=== PATIENT | female | born 1955 | race Caucasian/White ===

== ENCOUNTER 2019-02-13 10:08 | Day surgery (SDC) | payer MEDICARE ==
[2019-02-13] MEDS ORDERED: Lactated Ringers 1,000 ML IV ONE ×3 (10:26→15:10)
[2019-02-13] MEDS ORDERED: Quelicin Fliptop 200 MG/10 ML ONE (10:33)
[2019-02-13] MEDS ORDERED: Zemuron 100 MG/10 ML ONE (10:33)
[2019-02-13] MEDS ORDERED: DIPRIVAN 200 MG/20 ML IV ONE (10:33)
[2019-02-13] MEDS ORDERED: SUBLIMAZE 100 MCG/2 ML ONE ×2 (10:34→14:05)
[2019-02-13] MEDS: Lactated Ringers 1,000 ML IV SCH ×2 (10:52→15:10)
--- NOTE | 2019-02-13 11:09 | HP ---
DATE OF SURGERY: 02/13/2019 HISTORY OF PRESENT ILLNESS: The patient is a 63 year-old has long standing history of cyst behind her right ear post-auricular area. It recently got infected and had been on antibiotics and was a little bit better but has quite a bit of infection in this area and no spontaneous drainage now. She is in need of surgical treatment. PAST MEDICAL HISTORY: The patient has some depression, hypertension, diabetes mellitus type 2. PAST SURGICAL HISTORY: Cholecystectomy. section. MEDICATIONS: Basaglar Kwikpen, Citalopram, Simvastatin, metoprolol. ALLERGIES: NKDA. FAMILY HISTORY: Heart disease, diabetes, breast cancer, chronic obstructive pulmonary disease, asthma, renal disease in the family. SOCIAL HISTORY: No smoking or alcohol abuse. REVIEW OF SYSTEMS: Fourteen systems reviewed per admission assessment. No chest pain or palpitations other systems negative or noncontributory as above and per preadmission questionnaire. PHYSICAL EXAMINATION: GENERAL: No acute distress. HEENT: Sclerae nonicteric. As far as her head: Behind her right ear post-auricular area a nasty infected ruptured cyst site likely with underlying abscess. NECK: No JVD. CHEST: Equal excursion, nonlabored breathing. CVS: Regular rate and rhythm. ABDOMEN: Soft, nondistended. EXTREMITIES: No edema. NEURO: Alert, moving extremities grossly symmetrically. IMPRESSION: Ruptured cyst site and infection post-auricular area. I feel the patient will benefit from drainage possible excision of ruptured cyst site itself. Pending operative findings given the degree of infection likely will need to be packed open with daily dressing change or packing changes. The patient is agreeable to the planned procedure. General risk of bleeding or infection, the fact that she will need to pack the wound, risk of aches, pain, burning or numbness in the area, possibility may not be able to identify any cyst wall. She could have another cyst or cyst site growing again down the road that could require other therapy or if cleared up could get definitive excision down the road. General risk of anesthesia, deep venous thrombosis, pulmonary embolism, pneumonia but not limited to. She is agreeable to the planned procedure, will proceed with drainage possible excision ruptured cyst site right post-auricular area when OR time available later today.
[2019-02-13] MEDS ORDERED: Sensorcaine 0.25% 10 ML ONE (12:31)
[2019-02-13] MEDS ORDERED: Ketamine HCl 50 MG/ML ONE (13:28)
[2019-02-13] MEDS ORDERED: KEFZOL 1 GM ONE (13:36)
[2019-02-13] MEDS ORDERED: Zofran 4 MG/2 ML VIAL IV STA (14:39)
[2019-02-13] MEDS ORDERED: Compazine 10 MG/2 ML IV ONE (15:06)
[2019-02-13 15:50] VITALS: BP 150/70; PULSE 73; O2SAT 94
--- NOTE | 2019-02-14 10:06 | OP ---
SURGERY DATE/TIME: 02/13/2019 1325 PREOPERATIVE DIAGNOSIS: Infected ruptured cyst site right post-auricular area. POSTOPERATIVE DIAGNOSIS: Infected ruptured cyst site right post-auricular area. PROCEDURE: Drainage, culture, irrigation and packing of infected ruptured cyst site right post-auricular area. SURGEON: Dr. Boone Ford. ANESTHESIA: MAC. 0.25% Marcaine local. ESTIMATED BLOOD LOSS: Minimal. INDICATIONS: As noted above. Risks and benefits explained in detail and not limited to and consent obtained. DESCRIPTION OF PROCEDURE AND FINDINGS: The patient is taken to the operating room. MAC anesthesia introduced. The post-auricular area prepped and draped in sterile fashion. After official time out and no disagreement with planned procedure, a dime-sized opening over the top of this. There was some purulence underneath. Cultures were taken. Had quite venous ooze secondary to all of this congestion. Pressure is held for a few minutes. There did not appear to be any loculated pockets at this moment. Given the persistent venous ooze three corner Prolene sutures placed and appeared to have adequate hemostasis but need for additional hemostasis a small piece of Surgicel was left in the wound. Culture had been taken. Copious amount of irrigation irrigating out. A small piece of Surgicel left followed by 0.25 inch Iodoform packing. At this point sterile dressing and head wrap applied. There was no family available to discuss the findings with at this time. There were no immediate complications. Starting in two days she will remove the packing and repack normal saline wet to dry with 0.25 inch gauze or the corner of a 4x4. Otherwise continue on Bactrim DS. I will follow up in the office next week. She can reapply the head dress SULLY wrap as needed.
== END 2019-02-13 15:55 | disposition home or self-care (01) ==
LOC: SDC 10:08
PROVIDERS: ATTEND Surgery
DX: Q18.1 Preauricular sinus and cyst (principal); E11.9 Type 2 diabetes mellitus without complications; I10 Essential (primary) hypertension; Z79.899 Other long term (current) drug therapy
CPT/HCPCS: 82962; 87070; 87077; 87186; 88305; 93005; J0330; J0690; J2405; J2704; J3010